=== PATIENT | male | born 1990 | race Two or more races ===

== ENCOUNTER 2016-05-22 17:08 | Emergency (ER) | payer MEDICAID, OTHER ==
[2016-05-22 17:20] VITALS: TEMP 98.2; O2SAT 96
--- NOTE | 2016-05-22 17:38 | EDPHY ---
General Narrative: CHIEF COMPLAINT: Left hand pain HISTORY OF PRESENT ILLNESS: Patient has had pain in the left hand for approximately a year he says. This started with a boxing injury. He was seen here with x-ray performed. He says he was diagnosed with a boxer's fracture at that time. He was referred to hand surgeon but did not ever go and he does not know why he did not go. Since then he has had pain intermittently. Sometimes goes away. Over the past week it has been worse. It is moderate to severe pain. The pain is located over the dorsum of the left hand and into the wrist. There is no snuffbox tenderness. There is no paresthesia or anesthesia. No weakness. No wrist drop. Worse with palpation and ambulation weight-bearing. Improved at rest. Radiates up into the forearm. No new injury since last year. No other associated complaints or modifying factors. PRIOR ORTHO INJURIES: Left hand injury ESTABLISHED ORTHOPEDIST: None REVIEW OF SYSTEMS: Ten systems reviewed and are negative unless otherwise noted in the HPI EXAMINATION General Appearance: Alert, no distress Cardiovascular: Pulses normal throughout. Symmetric radial pulses 2+. Brisk cap refill Neurological: A&O, sensory symmetric, strength symmetric. Interossei strength is 5/5 and symmetric. No wrist drop. Two-point sensation intact. Skin: Warm and dry, no rash. No lacerations abrasions or contusions. Extremities: Tenderness to palpation of the dorsal left hand over the metacarpals and into the wrist. There is no snuffbox tenderness. No tenderness at the base of the thumb. Range of motion is fully intact but painful. No wrist drop. No deformity. Psychiatric: Mood and affect normal DIFFERENTIAL DIAGNOSES: Including but not limited to chronic pain, strain, sprain, fracture, fracture dislocation MDM: 5:38 p.m. Left wrist and hand pain. The patient reports that was years ago, chart review reveals an injury in July 2015. X-ray was negative that was performed here. He did not here to our recommendations as he did not follow up with a hand surgeon. Neuro examination is normal. There is tenderness in the hand and wrist and I have ordered x-rays at this time. 6:15 p.m. X-rays are unremarkable for fracture. He remains neurovascular intact with no evidence of cellulitis, tenosynovitis, bite injury, laceration abrasion or contusions. Range of motion is painful but intact. I will discharge him home with a cock-up wrist splint and instructions to see Orthopedics for definitive care. He is comfortable with this plan and discharged home stable condition. ED Precautions: Worsening pain. Erythema, edema, cyanosis, pallor, paresthesia or anesthesia. SUPERVISION: This patient was independently evaluated without direct examination by the attending physician. Case was discussed with attending physician. - Diagnostics Imaging Results: Imaging Impressions Hand X-Ray 05/22/16 17:32 Impression: Left hand negative for fracture. Wrist X-Ray 05/22/16 17:34 Impression: Left wrist negative for fracture; the left hand is reported separately. - History Smoking Status: Former smoker - Objective Vital Signs: Initial Vital Signs Temperature (C) 98.2 F 05/22/16 17:17 Heart Rate 80 05/22/16 17:17 Respiratory Rate 18 05/22/16 17:17 Blood Pressure 139/97 H 05/22/16 17:17 O2 Sat (%) 96 05/22/16 17:17 O2 Delivery Mode Room Air Allergies/Adverse Reactions: Penicillins Allergy (Verified 05/22/16 17:16) Home Medications: Medication Instructions Recorded Acetaminophen/Codeine 300/30Mg 1 each PO Q6 PRN #10 tab 05/22/16 [Tylenol #3 (*)] Departure - Departure Disposition: Home, Routine, Self-Care Clinical Impression: Hand pain, left Condition: Good Instructions: Arthralgia (ED) Additional Instructions: Follow-up with hand surgeon for definitive care. Return to the ER for wrist drop, redness over the hand or wrist, sensory changes in the hand or wrist or worsening pain Referrals: NONE *PRIMARY CARE P,. [Primary Care Provider] - As per Instructions Juana Nash MD [Medical Doctor] - As per Instructions Prescriptions: Acetaminophen/Codeine 300/30Mg [Tylenol #3 (*)] 1 each PO Q6 PRN #10 tab PRN Reason: Pain, Mild
[2016-05-22 18:42] VITALS: BP 127/86; PULSE 78; RESP 14
== END 2016-05-22 18:42 | disposition home or self-care (01) ==
DX: M79.642 Pain in left hand (principal); Z87.891 Personal history of nicotine dependence
CPT/HCPCS: L3807

== ENCOUNTER → 2016-06-01 | Outpatient (CLI) | payer MEDICAID | LOC: FIMAGING 18:50 | PROVIDERS: ATTEND Physician Assistant | DX: S63.592A Other specified sprain of left wrist, initial encounter (principal); M65.842 Other synovitis and tenosynovitis, left hand ==

== ENCOUNTER 2017-02-20 21:58 | Emergency (ER) | payer SELFPAY ==
[2017-02-20] MEDS ORDERED: PANTOPRAZOLE SODIUM 40 MG VIAL IVP ONE (22:32)
[2017-02-20] MEDS ORDERED: ONDANSETRON 4 MG/2 ML VIAL IVP ONE (22:32)
[2017-02-20] MEDS ORDERED: NS 1,000 ML IV ONE (22:32)
--- NOTE | 2017-02-20 22:55 | EDPHY ---
H & P Smoking Status: Former smoker Time Seen by Provider: 02/20/17 22:31 HPI/ROS: CHIEF COMPLAINT: Abdominal pain, vomiting HISTORY OF PRESENT ILLNESS: 26-year-old male presents to the emergency department with multiple episodes of vomiting over the last hour and half. The patient states that he noted that he was vomiting "black stuff ". Patient has a history of alcoholism and has been sober for the last 10 days. He has been doing well until started feeling sick earlier this evening. He describes diffuse abdominal pain especially in the epigastric area. He has never had this in the past. He does note that he has had episodes of hematemesis however he has never seen a primer inserting machine adjuster or any doctor for this. No fevers or chills. No chest pain or difficulty breathing. No back pain. No urinary symptoms. No known ill contacts. No recent travel. No melena. REVIEW OF SYSTEMS: Constitutional: No fever, no chills. Eyes: No double or blurry vision. ENT: No sore throat. Respiratory: No cough, no shortness of breath. Cardiac: No chest pain. Gastrointestinal: Abdominal pain, vomiting as above. No diarrhea. Genitourinary: No dysuria. Musculoskeletal: No neck or back pain. Skin: No rashes. Neurological: No headache. (Maria GKarissa M) Past Medical/Surgical History: Alcoholism, sober for 10 days. Marijuana use (Maria G,Karissa M) Social History: Single (Maria G,Karissa M) Physical Exam: General Appearance: Alert, no distress. Vital signs are stable. Blood pressure 164/96 Eyes: Pupils equal and round. Extraocular motions are all intact. ENT: Mouth: Mucous membranes appears dry. Respiratory: No wheezing, rhonchi, or rales, lungs are clear to auscultation. Cardiovascular: Regular rate and rhythm. Gastrointestinal: Abdomen is soft. Diffuse tenderness with palpation especially in the epigastric area. There is no masses, rebound or guarding noted. No CVA tenderness bilaterally. Neurological: Alert and oriented x 3, cranial nerves II through XII grossly intact Skin: Warm and dry, no rashes. Musculoskeletal: Nontender to palpate along the cervical, thoracic or lumbar spine. Neck is supple. Extremities: Full range of motion and no peripheral edema. Psychiatric: Patient is oriented X 3, there is no agitation. (Karissa Cummins) Constitutional: Initial Vital Signs Temperature (C) 37.0 C 02/20/17 22:00 Heart Rate 81 02/20/17 22:00 Respiratory Rate 18 02/20/17 22:00 Blood Pressure 164/96 H 02/20/17 22:00 O2 Sat (%) 97 02/20/17 22:00 O2 Delivery Mode Room Air Allergies/Adverse Reactions: Penicillins Allergy (Verified 02/20/17 22:02) Home Medications: Medication Instructions Recorded NK [No Known Home Meds] 02/20/17 Medical Decision Making ED Course/Re-evaluation: 26-year-old male with multiple episodes of vomiting including "black stuff ". Gastric contents sent for occult testing. Laboratory studies are pending. Patient was given IV normal saline, IV Protonix, IV Zofran. 11:45 p.m.: The patient is feeling much better. He is tolerating p.o. fluids. He is comfortable being discharged home. Laboratory studies reveal normal hemoglobin and hematocrit. Platelets are normal. His chemistries are all unremarkable including LFTs and lipase. His gastric contents was positive for blood. I encouraged close follow-up with primer inserting machine adjuster. I also encouraged him to try [id number] Prilosec. He should return if he develops recurring vomiting, worsening abdominal pain, or if he feels worse in any way. Patient is comfortable with this plan. (Karissa Cummins) PHYSICIAN DOCUMENTATION: The patient was evaluated and managed by the Physician Blind Escort. My co- signature indicates that I have reviewed this chart and I agree with the findings and plan of care as documented. I am the secondary supervising physician. (Inocencia Horne) Differential Diagnosis: Including but not limited to GI bleed, gastritis, Connie-Becker tear, esophagitis, GERD, peptic ulcer disease (Karissa Cummins) - Data Points Laboratory Results: Laboratory Results 02/20/17 22:45 02/20/17 22:45 Medications Given: Discontinued Medications Sodium Chloride (Ns) 1,000 mls @ 0 mls/hr IV ONCE ONE PRN Reason: Wide Open Stop: 02/20/17 22:33 Last Admin: 02/20/17 22:44 Dose: 1,000 mls Ondansetron HCl (Zofran) 4 mg IVP EDNOW ONE Stop: 02/20/17 22:33 Last Admin: 02/20/17 22:42 Dose: 4 mg Pantoprazole Sodium (Protonix) 40 mg IVP EDNOW ONE Stop: 02/20/17 22:33 Last Admin: 02/20/17 22:43 Dose: 40 mg Departure - Departure Disposition: Home, Routine, Self-Care Clinical Impression: Abdominal pain, Vomiting Condition: Good Instructions: Acute Nausea and Vomiting (ED), Acute Abdominal Pain (ED) Additional Instructions: Abdominal Pain: Return to the Emergency Department immediately for increasing pain, fever, vomiting, or if not completely better in 8-12 hours. You may try [id number] Prilosec, omeprazole, for your upper abdominal pain. Clear liquids and slowly advance diet as tolerated. Follow up with primer inserting machine adjuster as discussed. Referrals: Everardo Cota MD [Medical Doctor] - 2-3 days, call for appt. ( Front Services Agent on-call)
[2017-02-20 23:00] LABS: PLATELET COUNT 213 10^3/uL (150-400)
[2017-02-21] VITALS: BP 143/85; PULSE 79; RESP 16; TEMP 98.6; O2SAT 96
== END 2017-02-20 23:59 | disposition home or self-care (01) ==
DX: R10.13 Epigastric pain (principal); R11.10 Vomiting, unspecified; Z87.891 Personal history of nicotine dependence
CPT/HCPCS: 96374; J2405

== ENCOUNTER 2017-02-27 13:20 | Emergency (ER) | payer MEDICAID ==
[2017-02-27 14:14] VITALS: RESP 22
[2017-02-27] MEDS ORDERED: ONDANSETRON 4 MG/2 ML VIAL ONE (14:26)
[2017-02-27] MEDS ORDERED: LORazepam 2 MG/ML INJ IVP ONE (14:52)
[2017-02-27] MEDS ORDERED: HALOPERIDOL LACT 5 MG/ML INJ IVP ONE (14:52)
[2017-02-27] MEDS ORDERED: NS 1,000 ML IV ONE (14:53)
[2017-02-27] MEDS ORDERED: FAMOTIDINE 20 MG TAB PO ONE (14:53)
--- NOTE | 2017-02-27 14:57 | EDPHY ---
General - History Smoking Status: Former smoker Narrative: CHIEF COMPLAINT: Abdominal pain, vomiting HISTORY OF PRESENT ILLNESS: Patient complains of 1 day history of epigastric abdominal pain with nausea vomiting. The vomiting has been voluminous and repetitive. He has moderate to severe epigastric tenderness. No lower quadrant tenderness. No fever. No bright red blood per emesis. No coffee-ground emesis. No blood in the stool described. Reports similar complaints several days ago. He was evaluated here and discharged home. He has been taking Pepto-Bismol without improvement. He was referred to a GI physician that he has not yet seen. He has continued heavy use of marijuana. No other associated complaints or modifying factors. REVIEW OF SYSTEMS: Ten systems reviewed and are negative unless otherwise noted in the HPI PCP: None SPECIALISTS: None. Awaiting referral to Dr. Cota PAST MEDICAL HISTORY: Orthopedic injuries only PAST SURGICAL HISTORY: Wrist surgery in September 2016 SOCIAL HISTORY: No tobacco use. Former alcohol user as of February 22. Heavy marijuana use FAMILY HISTORY: noncontributory EXAMINATION General Appearance: Alert, no distress Head: normocephalic, atraumatic Eyes: Pupils equal and round, no conjunctival pallor or injection ENT, Mouth: Mucous membranes moist. Uvula midline. Neck: Normal inspection, supple, non-tender Respiratory: Lungs are clear to auscultation Cardiovascular: Regular rate and rhythm. No murmur Gastrointestinal: Abdomen is soft and nondistended. Epigastric tenderness. No guarding. No tympany. No right lower quadrant tenderness. Negative Rovsing. No rigidity. Back: non-tender, no bony abnormalities Neurological: A&O, nonfocal, normal gait Skin: Warm and dry, no rash. No petechiae or purpura Extremities: Nontender, no pedal edema Psychiatric: Mood and affect normal DIFFERENTIAL DIAGNOSES: Including but not limited to gastritis, THC gastritis, GERD, reflux, pancreatitis, cholecystitis, cholelithiasis, MDM: 2:50 p.m. Epigastric abdominal pain with multiple bouts of vomiting today. No bright red blood. Abdominal exam reveals epigastric tenderness without acute abdomen. Vital signs are within normal limits. He does endorse heavy use of marijuana. Ordered laboratory studies and treatment for gastritis and nausea vomiting. At this point I would not order emergent imaging. I will see how he response to medications and re-evaluate. 3:45 p.m. Laboratory studies reveal leukocytosis that I suspect is demargination. Hemoglobin is stable. Chemistries unremarkable. Patient has received IV Haldol and IV Ativan in addition to Zofran and fluids. I have re-evaluated the patient at this time. He is feeling much better. He is sleeping but wakes easily. He is no longer feeling nauseated. Attempt a p.o. trial and re- evaluate 4:30 p.m. Patient re-evaluated. He is tolerating intake of water by mouth. He is feeling significantly better with the treatment here. Minimal pain. No nausea. I offered CT scan for further delineation but he has declined. I do not feel he requires CT scan at this time. He would like to go home. I do feel this is reasonable. I will discharge him home with treatment for gastritis. I would like him to return to the emergency department in 24 hr if no improvement of his symptoms. Like him to return sooner for symptoms worsen or he has vomited again. We discussed cessation of marijuana use as I suspect this is THC the related. He voices understanding of this. He will be provided the on-call primary care physician for outpatient follow-up and care. ED precautions discussed. He is discharged in stable condition SUPERVISION: Patient was independently examined, but I discussed the case with my secondary supervising physician Dr. Espinoza ([facility]) Discussion: The patient was evaluated and managed by the Physician Server Security Administrator. I discussed the patient's presentation and course with the midlevel provider with them and agree with the evaluation. My co-signature indicates that I have reviewed this chart and I agree with the findings and plan of care as documented. I am the secondary supervising physician. (Essie Espinoza) - Objective Vital Signs: Initial Vital Signs Temperature (C) 36.5 C 02/27/17 14:12 Heart Rate 64 02/27/17 14:12 Respiratory Rate 22 H 02/27/17 14:12 Blood Pressure 145/107 H 02/27/17 14:12 O2 Sat (%) 99 02/27/17 14:12 O2 Delivery Mode Room Air Allergies/Adverse Reactions: Penicillins Allergy (Verified 02/20/17 22:02) Home Medications: Medication Instructions Recorded Acetaminophen/Codeine 300/30Mg 1 each PO Q6 PRN #7 tab 02/27/17 [Tylenol #3 (*)] Famotidine [Pepcid 20 MG (*)] 20 mg PO BID #10 tab 02/27/17 Promethazine HCl [Phenergan 25mg 25 mg PO Q8 PRN #7 tab 02/27/17 (*)] Sucralfate [Carafate Oral Liquid 10 ml PO QID PRN #240 ml 02/27/17 100 mg/ml] Laboratory Results: Laboratory Results 02/27/17 14:22 02/27/17 14:22 02/27/17 02/27/17 14:22 14:22 WBC 15.06 10^3/uL H 10^3/uL (3.80-9.50) RBC 5.41 10^6/uL 10^6/uL (4.40-6.38) Hgb 16.4 g/dL g/dL (13.7-17.5) Hct 47.6 % % (40.0-51.0) MCV 88.0 fL fL (81.5-99.8) MCH 30.3 pg pg (27.9-34.1) MCHC 34.5 g/dL g/dL (32.4-36.7) RDW 12.4 % % (11.5-15.2) Plt Count 279 10^3/uL 10^3/uL (150-400) MPV 10.6 fL fL (8.7-11.7) Neut % (Auto) 91.8 % H % (39.3-74.2) Lymph % (Auto) 4.9 % L % (15.0-45.0) Bullock % (Auto) 2.3 % L % (4.5-13.0) Eos % (Auto) 0.0 % L % (0.6-7.6) Baso % (Auto) 0.3 % % (0.3-1.7) Nucleat RBC Rel Count 0.0 % % (0.0-0.2) Absolute Neuts (auto) 13.84 10^3/uL H 10^3/uL (1.70-6.50) Absolute Lymphs (auto) 0.74 10^3/uL L 10^3/uL (1.00-3.00) Absolute Monos (auto) 0.34 10^3/uL 10^3/uL (0.30-0.80) Absolute Eos (auto) 0.00 10^3/uL L 10^3/uL (0.03-0.40) Absolute Basos (auto) 0.04 10^3/uL 10^3/uL (0.02-0.10) Absolute Nucleated RBC 0.00 10^3/uL 10^3/uL (0-0.01) Immature Gran % 0.7 % % (0.0-1.1) Immature Gran # 0.10 10^3/uL 10^3/uL (0.00-0.10) Sodium 146 mEq/L H mEq/L (135-145) Potassium 4.1 mEq/L mEq/L (3.5-5.2) Chloride 102 mEq/L mEq/L (97-110) Carbon Dioxide 24 mEq/l mEq/l (22-31) Anion Gap 20 mEq/L H mEq/L (8-16) BUN 10 mg/dL mg/dL (7-23) Creatinine 0.9 mg/dL mg/dL (0.7-1.3) Estimated GFR > 60 Glucose 133 mg/dL H mg/dL (70-100) Calcium 10.5 mg/dL H mg/dL (8.5-10.4) Total Bilirubin 0.5 mg/dL mg/dL (0.1-1.4) Conjugated Bilirubin 0.3 mg/dL mg/dL (0.0-0.5) Unconjugated Bilirubin 0.2 mg/dL mg/dL (0.0-1.1) AST 24 IU/L IU/L (17-59) ALT 41 IU/L IU/L (21-72) Alkaline Phosphatase 107 IU/L IU/L (38-126) Total Protein 8.3 g/dL H g/dL (6.3-8.2) Albumin 5.0 g/dL g/dL (3.5-5.0) Lipase 80 IU/L IU/L (23-300) Medications Given: Discontinued Medications Famotidine (Pepcid) 20 mg PO EDNOW ONE Stop: 02/27/17 14:54 Last Admin: 02/27/17 15:20 Dose: 20 mg Haloperidol Lactate (Haldol Injection) 2.5 mg IVP EDNOW ONE Stop: 02/27/17 14:53 Last Admin: 02/27/17 15:20 Dose: 2.5 mg Sodium Chloride (Ns) 1,000 mls @ 0 mls/hr IV EDNOW ONE; Wide Open PRN Reason: Protocol Stop: 02/27/17 14:54 Last Admin: 02/27/17 14:45 Dose: 1,000 mls Lorazepam (Ativan Injection) 1 mg IVP EDNOW ONE Stop: 02/27/17 14:53 Last Admin: 02/27/17 15:20 Dose: 1 mg Departure - Departure Disposition: Home, Routine, Self-Care Clinical Impression: Epigastric pain Gastritis Qualifiers: Gastritis type: other gastritis Chronicity: acute Gastritis bleeding: without bleeding Qualified Code(s): K29.00 - Acute gastritis without bleeding Nausea & vomiting Qualifiers: Vomiting type: unspecified Vomiting Intractability: non-intractable Qualified Code(s): R11.2 - Nausea with vomiting, unspecified Condition: Good Instructions: Gastritis (ED), Acute Nausea and Vomiting (ED), Medicinal Use of Cannabis (ED) Additional Instructions: 1. Recommend cessation of marijuana use 2. Medications as prescribed as needed 3. Contact the on-call primary care physician as provided and discussed Referrals: Shantanu Smith MD [Medical Doctor] - As per Instructions Stand Alone Forms: Work Excuse Prescriptions: Acetaminophen/Codeine 300/30Mg [Tylenol #3 (*)] 1 each PO Q6 PRN #7 tab PRN Reason: Pain, Mild Famotidine [Pepcid 20 MG (*)] 20 mg PO BID #10 tab Promethazine HCl [Phenergan 25mg (*)] 25 mg PO Q8 PRN #7 tab PRN Reason: Nausea/Vomiting, Use 1st Sucralfate [Carafate Oral Liquid 100 mg/ml] 10 ml PO QID PRN #240 ml PRN Reason: abdominal pain
[2017-02-27 15:00] LABS: PLATELET COUNT 279 10^3/uL (150-400)
[2017-02-27 17:01] VITALS: BP 132/82; PULSE 67; TEMP 98.6; O2SAT 98
== END 2017-02-27 17:01 | disposition home or self-care (01) ==
DX: K29.00 Acute gastritis without bleeding (principal); E86.9 Volume depletion, unspecified; Z87.891 Personal history of nicotine dependence
CPT/HCPCS: 96374; J1630; J2060; J2405

== ENCOUNTER 2017-06-19 15:15 | Emergency (ER) | payer SELFPAY ==
[2017-06-19 15:21] VITALS: BP 136/84
[2017-06-19] MEDS ORDERED: ONDANSETRON 4 MG/2 ML VIAL IVP ONE (16:03)
[2017-06-19] MEDS ORDERED: NS 1,000 ML IV ONE (16:03)
--- NOTE | 2017-06-19 16:06 | EDPHY ---
H & P Stated Complaint: abdominal pain x 1 week, nausea after eating. Time Seen by Provider: 06/19/17 15:54 HPI/ROS: CHIEF COMPLAINT: Intractable nausea vomiting HISTORY OF PRESENT ILLNESS: 26-year-old male arrives via private vehicle complaining of intractable nausea and vomiting for the past 7 days. States that soon as he eats small amount of food he will shortly thereafter vomit. No specific abdominal pain. He does describe intermittent nonspecific abdominal cramping. Remote history of appendicitis. Bowel movements have been normal. History of continued daily marijuana use. No trauma history. No urinary abnormality. No melena or hematochezia. He was seen emergency department in February 2017 for similar complaints, given gastroenterology follow-up at that time however as he remained asymptomatic he did not seek follow-up. REVIEW OF SYSTEMS: A ten point review of systems was performed and is negative with the exception of the items mentioned in the HPI PAST MEDICAL & SURGICAL HISTORY: Appendectomy SOCIAL HISTORY:Positive for daily marijuana use of smoked and edible PHYSICAL EXAM (Prior to examination, patient consented to physical exam, hands were washed and my usual and customary physical exam procedures followed) 1) GENERAL: Well-developed, well-nourished, alert and oriented. Appears to be in no acute distress. 2) HEAD: Normocephalic, atraumatic 3) HEENT: Pupils equal, round, reactive to light bilaterally. Sclera anicteric. Nasopharynx, oropharynx, clear, no lesions. Dry mucous membranes 4) NECK: Full range of motion, no meningeal signs. 5) LUNGS: Clear auscultation bilaterally, no wheezes, no rhonchi, no retractions. 6) HEART: Regular rate and rhythm, no murmur, no heave, no gallop. 7) ABDOMEN: No guarding, mild tenderness to palpation left upper quadrant left lower quadrant,, negative McBurney's, negative Adan's, negative Rovsing's, negative peritoneal sign, 8) MUSCULOSKELETAL: Moving all extremities, no focal areas of tenderness, no obvious trauma. No peripheral edema or discoloration. 9) BACK: No CVA tenderness, no midline vertebral tenderness, no fluctuance, no step-off, no obvious trauma, no visual or palpable abnormality. 10) SKIN: No rash, no petechiae. 11) : Uncircumcised, bilateral testicles nontender , no high-riding testicle , no signs of trauma, bilateral cremasteric reflex present and brisk,. DIFFERENTIAL DIAGNOSIS: My differential diagnosis includes, but is not limited to, cyclic vomiting syndrome, cannabis hyperemesis, acute cholecystitis, bowel obstruction, acute pancreatitis, testicular torsion, gastritis. The patient understands that this diagnosis is provisional and can never be 100% accurate. This is a partial list of diagnoses considered. These considerations are based on history, physical exam, past history and reassessment. - Medical/Surgical History Hx Asthma: No Hx Chronic Respiratory Disease: No Hx Diabetes: No Hx Cardiac Disease: No Hx Renal Disease: No Hx Cirrhosis: No Hx Alcoholism: No Hx HIV/AIDS: No Hx Splenectomy or Spleen Trauma: No Other PMH: left wrist surgery - Social History Smoking Status: Former smoker Constitutional: Initial Vital Signs Temperature (C) 36.7 C 06/19/17 15:17 Heart Rate 85 06/19/17 15:17 Respiratory Rate 18 06/19/17 15:17 Blood Pressure 136/84 H 06/19/17 15:17 O2 Sat (%) 97 06/19/17 15:17 O2 Delivery Mode Room Air Allergies/Adverse Reactions: Penicillins Allergy (Verified 06/19/17 15:17) Home Medications: Medication Instructions Recorded Ondansetron Odt [Zofran Odt] 4 mg PO Q4PRN PRN #10 tab 06/19/17 Pantoprazole Sodium [Protonix 40mg 40 mg PO DAILY #30 tab 06/19/17 (RX)] Medical Decision Making ED Course/Re-evaluation: 4:03 p.m.: I reviewed the patient's old medical records. History of appendicitis. He has never followed up with Gastroenterology. Will obtain laboratory studies, administer IV hydration antiemetic. Care of patient under supervision of secondary supervising physician Dr Mandel. . 4:51 p.m. I have reviewed this patient's diagnostic results. He declined Zofran in the ER. He has been re-examined with serial examinations. I re- examined his abdomen. No guarding or rebound. No focal tenderness. He is able tolerate oral intake. At this time I think that acute surgical abdominal pathology is less than likely in this patient. He was initially noted to have mild discomfort palpation left upper and left lower quadrant. No splenomegaly noted. Think that diverticulitis, diverticular abscess, less than likely in this otherwise generally healthy 26-year-old male. I do not think that the benefits of CT imaging outweigh the risks. I have strongly encouraged him to follow up with Gastroenterology. Also strongly encouraged him to discontinue his chronic marijuana use. Recommended initiation of PPI therapy and given prescription for PPI and anti emetic as well as usual and customary abdominal precautions and instructions. He feels comfortable being discharged. All questions and concerns addressed by myself. - Data Points Laboratory Results: Laboratory Results 06/19/17 16:05 06/19/17 16:05 06/19/17 06/19/17 16:05 16:05 WBC 8.06 10^3/uL 10^3/uL (3.80-9.50) RBC 5.20 10^6/uL 10^6/uL (4.40-6.38) Hgb 15.7 g/dL g/dL (13.7-17.5) Hct 46.5 % % (40.0-51.0) MCV 89.4 fL fL (81.5-99.8) MCH 30.2 pg pg (27.9-34.1) MCHC 33.8 g/dL g/dL (32.4-36.7) RDW 13.3 % % (11.5-15.2) Plt Count 223 10^3/uL 10^3/uL (150-400) MPV 10.4 fL fL (8.7-11.7) Neut % (Auto) 67.6 % % (39.3-74.2) Lymph % (Auto) 23.4 % % (15.0-45.0) [place] % (Auto) 7.7 % % (4.5-13.0) Eos % (Auto) 0.6 % % (0.6-7.6) Baso % (Auto) 0.5 % % (0.3-1.7) Nucleat RBC Rel Count 0.0 % % (0.0-0.2) Absolute Neuts (auto) 5.44 10^3/uL 10^3/uL (1.70-6.50) Absolute Lymphs (auto) 1.89 10^3/uL 10^3/uL (1.00-3.00) Absolute Monos (auto) 0.62 10^3/uL 10^3/uL (0.30-0.80) Absolute Eos (auto) 0.05 10^3/uL 10^3/uL (0.03-0.40) Absolute Basos (auto) 0.04 10^3/uL 10^3/uL (0.02-0.10) Absolute Nucleated RBC 0.00 10^3/uL 10^3/uL (0-0.01) Immature Gran % 0.2 % % (0.0-1.1) Immature Gran # 0.02 10^3/uL 10^3/uL (0.00-0.10) Sodium 141 mEq/L mEq/L (135-145) Potassium 3.9 mEq/L mEq/L (3.5-5.2) Chloride 100 mEq/L mEq/L (97-110) Carbon Dioxide 27 mEq/l mEq/l (22-31) Anion Gap 14 mEq/L mEq/L (8-16) BUN 12 mg/dL mg/dL (7-23) Creatinine 0.9 mg/dL mg/dL (0.7-1.3) Estimated GFR > 60 Glucose 88 mg/dL mg/dL (70-100) Calcium 9.4 mg/dL mg/dL (8.5-10.4) Total Bilirubin 0.8 mg/dL mg/dL (0.1-1.4) Conjugated Bilirubin 0.5 mg/dL mg/dL (0.0-0.5) Unconjugated Bilirubin 0.3 mg/dL mg/dL (0.0-1.1) AST 20 IU/L IU/L (17-59) ALT 32 IU/L IU/L (21-72) Alkaline Phosphatase 83 IU/L IU/L (38-126) Total Protein 7.8 g/dL g/dL (6.3-8.2) Albumin 4.6 g/dL g/dL (3.5-5.0) Lipase 41 IU/L IU/L (23-300) Medications Given: Discontinued Medications Sodium Chloride (Ns) 1,000 mls @ 0 mls/hr IV ONCE ONE PRN Reason: Wide Open Stop: 06/19/17 16:04 Last Admin: 06/19/17 16:13 Dose: 1,000 mls Ondansetron HCl (Zofran) 4 mg IVP EDNOW ONE Stop: 06/19/17 16:04 Last Admin: 06/19/17 16:33 Dose: Not Given Departure - Departure Disposition: Home, Routine, Self-Care Clinical Impression: Volume depletion Vomiting Qualifiers: Vomiting type: unspecified Vomiting Intractability: non-intractable Nausea presence: with nausea Qualified Code(s): R11.2 - Nausea with vomiting, unspecified Condition: Good Instructions: Acute Nausea and Vomiting (ED) Additional Instructions: Seek immediate medical attention if you develop new or worsening symptoms, if you develop fevers, chills, inability to tolerate oral intake or any other symptoms that concerns you. Please consider discontinuation of marijuana products Referrals: Herrera Adams MD [Medical Doctor] - As per Instructions Prescriptions: Ondansetron Odt [Zofran Odt] 4 mg PO Q4PRN PRN #10 tab PRN Reason: Nausea Pantoprazole Sodium [Protonix 40mg (RX)] 40 mg PO DAILY #30 tab
[2017-06-19 16:15] LABS: PLATELET COUNT 223 10^3/uL (150-400)
== END 2017-06-19 17:20 | disposition home or self-care (01) ==
DX: R11.2 Nausea with vomiting, unspecified (principal); E86.9 Volume depletion, unspecified; Z87.891 Personal history of nicotine dependence
CPT/HCPCS: J2405

== ENCOUNTER 2017-08-23 19:10 | Emergency (ER) | payer OTHER ==
[2017-08-23 19:15] VITALS: BP 156/115
[2017-08-23] MEDS ORDERED: IBUPROFEN 600 MG TAB PO ONE (19:21)
--- NOTE | 2017-08-23 19:36 | EDPHY ---
H & P Stated Complaint: R knuckle pain, "heard a crunching sound", pain in arm Source: Patient Exam Limitations: No limitations - Personal History Current Tetanus Diphtheria and Acellular Pertussis (TDAP): Yes - Medical/Surgical History Hx Asthma: No Hx Chronic Respiratory Disease: No Hx Diabetes: No Hx Cardiac Disease: No Hx Renal Disease: No Hx Cirrhosis: No Hx Alcoholism: No Hx HIV/AIDS: No Hx Splenectomy or Spleen Trauma: No Other PMH: left wrist surgery - Social History Smoking Status: Former smoker Time Seen by Provider: 08/23/17 19:34 HPI/ROS: HPI: This is a 26-year-old male who presents with Chief Complaint: R knuckle pain, "heard a crunching sound", pain in arm Location: right 4h and 5th knuckle Quality: injury Duration:1 hour prior to arrival Signs and Symptoms: No bleeding, no radiation, no numbness, no weakness, no tingling, no incontinence, + decreased range of motion, + swelling, + pain, no fever Timing:acute Severity: moderate Context: Patient is a student at [employer], left hand dominant, presents with complaints of right hand injury primarily at the 4th and 5th knuckle. Patient was at baseball practice today and they were tossing football round. He reports that he accidentally hit top of 4th and 5th fingers on the tip of the football. He felt immediate pain and felt like his fingers jammed back into his hand. He reports that the pain was moderate, constant, nonradiating in nature. He reports that he has decreased range of motion secondary to pain and swelling. He denies any paresthesias, weakness, numbness. Denies LOC/head injury/neck pain/dizziness/nausea/vomiting/amnesia. Modifying Factors: He is not taking any [id number] pain medications or ice. Comment: ROS: see HPI Constitutional: No fever, no chills, no weight loss Eyes: No blurred vision Respiratory: No shortness of breath, no cough Cardiovascular: No chest pain Gastrointestinal: No nausea, no vomiting no diarrhea Genitourinary: No dysuria Extremities: No myalgias Neurologic: No weakness, no numbness Skin: No rashes Hematologic: No bruising, no bleeding MEDICAL/SURGICAL/SOCIAL HISTORY: Medical history: Generally healthy. Does not take any regular medications. Surgical history: Left wrist surgery Social history: Student at [employer] CONSTITUTIONAL: Extremely polite and cooperative young adult male, awake and alert, no obvious distress HEENT: Atraumatic and normocephalic. EXTREMITIES: 2/2 pulses, strength 5/5, right WRIST: Extension to 70, flexion to 80, radial deviation to 20 degree, ulnar deviation to 30, no scaphoid tenderness, no tenderness over ulnar styloid, no tenderness over radial styloid. KNEE: no effusion, medial and lateral joint line tenderness, full extension to 180, flexion to 120. No pain with varus and valgus exam. No pain with anterior drawer or posterior drawer test. Right 4th and 5th metacarpals are swollen and tender to palpation no obvious deformity noted. DIP /PIP/MCP flexion/extension intact with good light touch sensation. no deformities, no clubbing, no cyanosis or edema. NEUROLOGICAL: no focal neuro deficits. GCS 15. Light touch sensation intact. SKIN: Warm and dry, no erythema. no rash. Good capillary refill. (Mary Sprague ) Constitutional: Initial Vital Signs Temperature (C) 36.6 C 08/23/17 19:14 Heart Rate 105 H 08/23/17 19:14 Respiratory Rate 19 08/23/17 19:14 Blood Pressure 156/115 H 08/23/17 19:14 O2 Sat (%) 98 08/23/17 19:14 O2 Delivery Mode Room Air Allergies/Adverse Reactions: Penicillins Allergy (Verified 08/23/17 19:17) Home Medications: Medication Instructions Recorded Ondansetron Odt [Zofran Odt] 4 mg PO Q4PRN PRN #10 tab 06/19/17 Pantoprazole Sodium [Protonix 40mg 40 mg PO DAILY #30 tab 06/19/17 (RX)] oxyCODONE/APAP 5/325 [Percocet 1 - 2 tab PO Q4H PRN #10 tab 08/23/17 5/325 (*)] Medical Decision Making - Diagnostics Imaging Results: Imaging Impressions Hand X-Ray 08/23/17 19:21 Impression: 1. Nondisplaced oblique fracture proximal to mid shaft right fourth metacarpal. Wrist X-Ray 08/23/17 19:21 Impression: 1. Nondisplaced oblique fracture proximal to mid shaft right fourth metacarpal. Procedures: Procedure: Splint placement. A right ulnar gutter splint and sling were applied by the Emergency Room vein access technician. After application of the splint I returned and re-examined the patient. The splint was adequately immobilizing the joint and distal to the splint the patient's circulation and sensation was intact. (Mary Sprague) ED Course/Re-evaluation: Right hand x-ray, right wrist x-ray ordered Patient politely declined ice pack. Hand x-ray my read shows 4th metacarpal fracture minimally displaced. Placed in ulnar gutter splint, sling with orthopedic follow-up. No signs of neurovascular compromise/tenting of skin/compartment syndrome/ extremities and joints examined above and below area of concern and are neurovascularly intact. This patient was seen under the supervision of my secondary supervising physician. I evaluated care for this patient independently. Discussed this patient with Dr. Oviedo. (Mary Sprague) I did not see this patient while he was in the emergency department. However his care was discussed with the PA while the patient was in the department. I agree with treatment plan and management (José Manuel Oviedo) Differential Diagnosis: Differential diagnosis includes but is not limited to finger dislocation, phalanx fracture, nail injury, tendon injury, nerve injury. (Mary Sprague) - Data Points Medications Given: Discontinued Medications Ibuprofen (Motrin) 600 mg PO EDNOW ONE Stop: 08/23/17 19:22 Last Admin: 08/23/17 19:25 Dose: 600 mg Departure - Departure Disposition: Home, Routine, Self-Care Clinical Impression: Fracture of fourth metacarpal bone of right hand Qualifiers: Encounter type: initial encounter Fracture type: closed Metacarpal location: shaft Fracture alignment: displaced Qualified Code(s): S62.324A - Displaced fracture of shaft of fourth metacarpal bone, right hand, initial encounter for closed fracture Condition: Good Instructions: Hand Fracture (ED), Splint Care (ED) Additional Instructions: Keep the splint dry and in place until seen by Orthopedics. After 48 hours, you may remove the dressing; wash the site daily with mild soap and water; then pat dry. Take Tylenol 650 mg every 4 hours and/or Ibuprofen 600 mg every 8 hours with food as needed for pain. Use Percocet every 6 hours as needed for severe/break through pain. Do not use Tylenol and Percocet concomitantly. Apply ice for 30 minutes at a time; 2-3 times per day for the next 1-2 days. Follow up with Orthopedics in 5-7 days at which time they will evaluate and recommend with you if conservative management versus surgery is indicated. Follow-Up: Please follow-up as noted above. Follow up sooner if your condition worsens or if you develop any new problems Call as soon as possible for an appointment. Be clear when you call for an appointment that this is an Emergency Department follow-up. Contact the Emergency Department if you are having trouble arranging follow up care. Our referrals are not based on your insurance network. When time allows, contact your insurance carrier to verify the referral physician is in your plan. If not, get a referral for an in-linux network administrator. Please ask us if you have any questions. Referrals: Alexis Copeland MD [Medical Doctor] - As per Instructions Prescriptions: oxyCODONE/APAP 5/325 [Percocet 5/325 (*)] 1 - 2 tab PO Q4H PRN #10 tab PRN Reason: Pain, Severe
== END 2017-08-23 20:10 | disposition home or self-care (01) ==
DX: S62.324A Displaced fracture of shaft of fourth metacarpal bone, right hand, initial encounter for closed fracture (principal); Z87.891 Personal history of nicotine dependence; W21.01XA Struck by football, initial encounter; Y99.8 Other external cause status; Y93.61 Activity, american tackle football

== ENCOUNTER 2018-05-28 18:28 | Emergency (ER) | payer OTHER ==
[2018-05-28] MEDS ORDERED: ONDANSETRON DISINTEGRATING 4 MG TAB PO ONE (18:49)
[2018-05-28] MEDS ORDERED: fentaNYL 100 MCG/2 ML INJ IVP ONE ×2 (19:26→20:16)
[2018-05-28] MEDS ORDERED: ONDANSETRON 4 MG/2 ML VIAL IVP ONE (19:26)
[2018-05-28] MEDS ORDERED: NS 1,000 ML IV ONE ×2 (19:26→19:59)
--- NOTE | 2018-05-28 19:27 | EDPHY ---
General - History Smoking Status: Former smoker Time Seen by Provider: 05/28/18 19:06 Narrative: CLINICAL IMPRESSION: Alcoholic gastritis ASSESSMENT/PLAN: 27-year-old male presents to the emergency department with abdominal pain that began today associated with nausea and nonbloody nonbilious vomiting. Patient is tender to the epigastrium and right upper quadrant. EKG shows normal sinus rhythm, no acute ST or T-wave change, reviewed with Dr. Oviedo. Troponin negative. Initial lab suggestive of acidosis likely secondary to dehydration although lactate, beta hydroxybutyrate and blood gas do not suggest alcoholic ketoacidosis. Patient's labs improved significantly after 2 L IV fluid. He continued to complain of abdominal pain that seemed out of proportion to exam findings and was sleeping comfortably on all reassessments. CT scan performed and read by Radiology with no acute abnormality identified. He does have a leukocytosis of 15, normal lipase, mild transaminitis likely secondary to his chronic alcohol abuse. He was able to tolerate water and pain improved with GI cocktail, famotidine and IV fentanyl. I encouraged him to continue abstaining from alcohol, consider a PPI treatment for the next several weeks, modify diet, PCP follow-up encouraged. Case discussed with Dr. Oviedo. Warning signs return to ED sooner outlined and discharge. DIFFERENTIAL DX: Abdominal pain includes but not limited to acute appendicitis, alcoholic gastritis, gastroesophageal varices, portal hypertension, ACS diverticulitis, cholecystitis, pancreatitis, SBO, gastroenteritis, constipation ED PROCEDURES: See lab and/or imaging results below ED COURSE: Patient seen and assessed by myself at 7:15 p.m.. Appears uncomfortable, nauseous and vomiting. Abdomen diffusely tender, more so to the right upper quadrant and epigastric area. Plan for IV, labs, fluid bolus, antiemetics and analgesics and EKG. 8:20 p.m.: Patient reassessed, nausea improved, continuing to have abdominal pain, repeat fentanyl and famotidine ordered. 2 L of IV fluid completed. Will repeat basic metabolic panel. EKG shows normal sinus rhythm, no acute ST or T- wave changes, reviewed with Dr. Oviedo. 8:30 p.m.: EKG and case reviewed with Dr. Oviedo. Concern about acidosis and possible for alcoholic ketoacidosis. Will check troponin, lactic acid, venous blood gas, beta hydroxybutyrate, and urine. Repeat basic metabolic panel after 2nd L. 10:00 p.m.: CT scan results discussed with Radiology. No acute findings identified. CHIEF COMPLAINT: Abdominal pain, nausea, vomiting HPI: 27-year-old male presents to the emergency department with 2 days of abdominal pain nausea and vomiting. Patient reports a history of heavy alcohol abuse, upwards of 7 Margaritas a day, his last drink being 3 days ago. He reports he is trying to stop drinking "cold turkey". He reports no history of problems with alcohol withdrawal, DTs, alcohol withdrawal seizures, GI bleeding, or pancreatitis. He has been unable to keep anything down due to persistent nausea and vomiting. He does report some blood in his vomit at home. No reports of bloody stool. Pain is primarily to the upper abdomen but generally uncomfortable throughout. He states pain does radiate into the back and into the chest. No associated shortness of breath. No reported cardiopulmonary history or first-degree family relative with cardiac disease. He has also been using some cocaine but no other drugs including marijuana. He has been trying hot showers and rest. He has had a prior appendectomy. No reported fever or chills. He has not take anything prior to arrival. PAST MEDICAL HISTORY: Alcohol abuse See nurse/triage notes for additional history if applicable Pertinent Past Surgical History: Appendectomy Family History: No first-degree relative with cardiac history Social History: Abuses cocaine, abuses alcohol REVIEW OF SYSTEMS: All other systems negative Constitutional: No fever, no chills, positive for appetite change. Cardiovascular: Positive for chest pain, no palpitations. Respiratory: No cough, no shortness of breath. Gastrointestinal: Positive for abdominal pain, vomiting, denies diarrhea. Genitourinary: No hematuria, dysuria, flank pain, pelvic pain Musculoskeletal: Positive for radiating pain in to the back, joint swelling, joint pain, myalgias.] Skin: No rashes, color change. Neurological: No headache, dizziness, positive for weakness. PHYSICAL EXAM: General Appearance: Alert, oriented, appropriate, cooperative, laying on the bed, does not appear acutely distressed, non-toxic appearing, tachycardic, hypertensive no hypoxia. HEENT: Mildly dry mucous membranes Oropharynx clear is no erythema or exudates , no tonsillar hypertrophy or asymmetry. Dentition without abnormality.] Eyes: [PERRLA, no acute vision change, nystagmus, swelling, discharge, pain or photosensitivity. Respiratory: There are no retractions, lungs are clear to auscultation. Cardiac: Tachycardic, regular rhythm, no murmurs or gallops. Gastrointestinal: Abdomen is soft, generally tender throughout, guarding to epigastrium and right upper quadrant, no distension bowel sounds hypoactive no masses/hernia, no focal peritoneal findings Neurological: [ Alert and oriented x 3, no tremors, no tongue fasciculations Skin: Warm, dry, no rashes, no nodules on palpation. MEDICAL DECISION MAKING: Patient was seen independently. Secondary supervising physician at time of evaluation was Dr. Oviedo . Diagnosis: Alcohol-induced gastritis, epigastric abdominal pain, nausea vomiting . New, requires workup Summary: See Assessment and Plan for summary of ED visit Clinical lab tests: ordered / reviewed. Independent visualization of images, tracing, or specimens: Yes. Decision to obtain medical records or history from someone other than the patient: No Review / Summarize previous medical records: Yes Discussed patient with another provider: Dr. Oviedo Patient Progress: Stable for discharge. (Grover Steel) Medical Decision Making: I did not see this patient while he was in the emergency department. However his care was discussed with the PA while the patient was in the department. Agree with treatment plan (José Manuel Oviedo) - Diagnostics Imaging Results: Imaging Impressions Abdomen CT 05/28/18 21:27 Impression: No acute abdominopelvic process. Findings and recommendations discussed with Grover Steel at 2201 hour, . - Objective Vital Signs: Initial Vital Signs Temperature (C) 36.5 C 05/28/18 18:34 Heart Rate 104 H 05/28/18 18:34 Respiratory Rate 16 05/28/18 18:34 Blood Pressure 158/90 H 05/28/18 18:34 O2 Sat (%) 99 05/28/18 18:34 O2 Delivery Mode Room Air Allergies/Adverse Reactions: Penicillins Allergy (Verified 08/23/17 19:17) Home Medications: Medication Instructions Recorded Ondansetron Odt [Zofran Odt] 4 mg PO Q4PRN PRN #7 tab 05/28/18 Laboratory Results: Laboratory Results 05/28/18 19:02 05/28/18 20:40 05/28/18 05/28/18 05/28/18 20:46 20:40 20:40 WBC RBC Hgb Hct MCV MCH MCHC RDW Plt Count MPV Neut % (Auto) Lymph % (Auto) [place] % (Auto) Eos % (Auto) Baso % (Auto) Nucleat RBC Rel Count Absolute Neuts (auto) Absolute Lymphs (auto) Absolute Monos (auto) Absolute Eos (auto) Absolute Basos (auto) Absolute Nucleated RBC Immature Gran % Immature Gran # Puncture Site Not Reported Patient Temperature 37.0 DEGREES DEGREES VBG pH 7.33 (7.31-7.42) VBG HCO3 18 mEQ/L L mEQ/L (22-26) VBG Total CO2 19 mEq/L L mEq/L (21-27) VBG O2 Saturation 98 % H % (65-75) VBG Base Excess -6.6 mEq/L L mEq/L (-2.5-2.5) VBG Lactic Acid 1.5 mmol/L mmol/L (0.7-2.1) Mixed VBG pCO2 36 mmHg L mmHg (40-44) Mixed VBG pO2 117 mmHG H mmHG (35-40) Sodium Potassium Chloride Carbon Dioxide Anion Gap BUN Creatinine Estimated GFR Glucose Calcium Phosphorus Total Bilirubin Conjugated Bilirubin Unconjugated Bilirubin AST ALT Alkaline Phosphatase POC Troponin I 0.00 ng/mL ng/mL (0.00-0.08) Total Protein Albumin Lipase Beta-Hydroxybutyrate 05/28/18 05/28/18 05/28/18 20:40 19:02 19:02 WBC 15.83 10^3/uL H 10^3/uL (3.80-9.50) RBC 5.82 10^6/uL 10^6/uL (4.40-6.38) Hgb 17.6 g/dL H g/dL (13.7-17.5) Hct 52.1 % H % (40.0-51.0) MCV 89.5 fL fL (81.5-99.8) MCH 30.2 pg pg (27.9-34.1) MCHC 33.8 g/dL g/dL (32.4-36.7) RDW 12.9 % % (11.5-15.2) Plt Count 335 10^3/uL 10^3/uL (150-400) MPV 10.8 fL fL (8.7-11.7) Neut % (Auto) 87.1 % H % (39.3-74.2) Lymph % (Auto) 7.8 % L % (15.0-45.0) [place] % (Auto) 4.2 % L % (4.5-13.0) Eos % (Auto) 0.0 % L % (0.6-7.6) Baso % (Auto) 0.3 % % (0.3-1.7) Nucleat RBC Rel Count 0.0 % % (0.0-0.2) Absolute Neuts (auto) 13.80 10^3/uL H 10^3/uL (1.70-6.50) Absolute Lymphs (auto) 1.24 10^3/uL 10^3/uL (1.00-3.00) Absolute Monos (auto) 0.66 10^3/uL 10^3/uL (0.30-0.80) Absolute Eos (auto) 0.00 10^3/uL L 10^3/uL (0.03-0.40) Absolute Basos (auto) 0.04 10^3/uL 10^3/uL (0.02-0.10) Absolute Nucleated RBC 0.00 10^3/uL 10^3/uL (0-0.01) Immature Gran % 0.6 % % (0.0-1.1) Immature Gran # 0.09 10^3/uL 10^3/uL (0.00-0.10) Puncture Site Patient Temperature VBG pH VBG HCO3 VBG Total CO2 VBG O2 Saturation VBG Base Excess VBG Lactic Acid Mixed VBG pCO2 Mixed VBG pO2 Sodium 138 mEq/L mEq/L 138 mEq/L mEq/L (135-145) (135-145) Potassium 4.3 mEq/L mEq/L 4.5 mEq/L mEq/L (3.5-5.2) (3.5-5.2) Chloride 109 mEq/L mEq/L 102 mEq/L mEq/L (97-110) (97-110) Carbon Dioxide 19 mEq/l L mEq/l 14 mEq/l L mEq/l (22-31) (22-31) Anion Gap 10 mEq/L mEq/L 22 mEq/L H mEq/L (6-14) (6-14) BUN 16 mg/dL mg/dL 17 mg/dL mg/dL (7-23) (7-23) Creatinine 1.1 mg/dL mg/dL 1.7 mg/dL H mg/dL (0.7-1.3) (0.7-1.3) Estimated GFR > 60 49 Glucose 150 mg/dL H mg/dL 207 mg/dL H mg/dL (70-100) (70-100) Calcium 8.9 mg/dL mg/dL 12.1 mg/dL H mg/dL (8.5-10.4) (8.5-10.4) Phosphorus 2.0 mg/dL L mg/dL (2.5-4.5) Total Bilirubin 1.2 mg/dL mg/dL (0.1-1.4) Conjugated Bilirubin 0.3 mg/dL mg/dL (0.0-0.5) Unconjugated Bilirubin 0.9 mg/dL mg/dL (0.0-1.1) AST 25 IU/L IU/L (17-59) ALT 22 IU/L IU/L (21-72) Alkaline Phosphatase 145 IU/L H IU/L (38-126) POC Troponin I Total Protein 10.7 g/dL H g/dL (6.3-8.2) Albumin 6.2 g/dL H g/dL (3.5-5.0) Lipase 57 IU/L IU/L (23-300) Beta-Hydroxybutyrate 0.92 mmol/L H mmol/L (0.02-0.27) Medications Given: Discontinued Medications Al Hydroxide/Mg Hydroxide (Maalox Susp) 30 ml PO ONCE ONE Stop: 05/28/18 22:24 Last Admin: 05/28/18 23:04 Dose: 30 ml Famotidine (Pepcid) 20 mg IVP EDNOW ONE Stop: 05/28/18 20:17 Last Admin: 05/28/18 20:22 Dose: 20 mg Fentanyl (Sublimaze) 50 mcg IVP EDNOW ONE Stop: 05/28/18 19:27 Last Admin: 05/28/18 19:31 Dose: 50 mcg Fentanyl (Sublimaze) 50 mcg IVP EDNOW ONE Stop: 05/28/18 20:17 Last Admin: 05/28/18 20:22 Dose: 50 mcg Hyoscyamine Sulfate (Levsin, Hyomax-Sl) 0.25 mg PO ONCE ONE Stop: 05/28/18 22:24 Last Admin: 05/28/18 23:04 Dose: 0.25 mg Sodium Chloride (Ns) 1,000 mls @ 0 mls/hr IV EDNOW ONE; Wide Open PRN Reason: Protocol Stop: 05/28/18 19:27 Last Admin: 05/28/18 19:32 Dose: 1,000 mls Sodium Chloride (Ns) 1,000 mls @ 0 mls/hr IV EDNOW ONE; Wide Open PRN Reason: Protocol Stop: 05/28/18 20:00 Last Admin: 05/28/18 20:14 Dose: 1,000 mls Lidocaine (Lidocaine 2% Viscous) 15 ml PO ONCE ONE Stop: 05/28/18 22:24 Last Admin: 05/28/18 23:03 Dose: 15 ml Ondansetron HCl (Zofran Odt) 4 mg PO EDNOW ONE Stop: 05/28/18 18:50 Last Admin: 05/28/18 18:53 Dose: 4 mg Ondansetron HCl (Zofran) 4 mg IVP EDNOW ONE Stop: 05/28/18 19:27 Last Admin: 05/28/18 19:31 Dose: 4 mg Point of Care Test Results: Chemistry 05/28/18 20:46 POC Troponin I 0.00 ng/mL ng/mL (0.00-0.08) Departure - Departure Disposition: Home, Routine, Self-Care Clinical Impression: Alcoholic gastritis Condition: Good Instructions: Gastritis (ED) Additional Instructions: DISCHARGE INSTRUCTIONS FROM YOUR DOCTOR Thank you for visiting our emergency department today. You were treated by a physician autopsy assistant today and your case was reviewed with our ED Attending physician. Please keep in mind that discharge from the emergency department does not mean that there is nothing wrong - it simply means that we have not identified an emergency condition that requires further evaluation or treatment in the hospital. You should always plan to follow up with primary care for re- evaluation of your condition in the next 2-3 days. If you have been referred to a specialist, please call as soon as possible (today or tomorrow) to schedule your follow up appointment at the appropriate time. DIAGNOSTIC EVALUATION EMERGENCY DEPARTMENT INCLUDED LABS, 2 L IV FLUID, AND CT SCAN. YOU SHOWS SIGNS OF SEVERE DEHYDRATION THAT WAS CORRECTED WITH IV FLUID. CT SCAN OF THE ABDOMEN SHOWS NO ACUTE ABNORMALITY OR SURGICAL EMERGENCY. PLEASE STOP DRINKING ALCOHOL. YOU LIKELY HAVE ALCOHOLIC GASTRITIS. NO EVIDENCE OF ACUTE PANCREATITIS. CONSIDER TAKING PRILOSEC DAILY 30 MIN BEFORE MEALS. AVOID ACID PRODUCING FOODS. FOLLOW UP WITH A PRIMARY CARE DOCTOR. IF YOU DO NOT HAVE 1 A REFERRAL WAS GIVEN. RETURN TO THE EMERGENCY DEPARTMENT IMMEDIATELY FOR SEVERE OR WORSENING ABDOMINAL PAIN, VOMITING BLOOD, HIGH FEVERS , CHEST PAIN OR SHORTNESS OF BREATH, OR ANY OTHER CONCERNS. People present with illnesses and injuries in different ways, and it is always possible that we have missed something. You may always return for re-evaluation if symptoms worsen or if they are not improving or if you develop new/different symptoms. Again, thank you for choosing our emergency department. We hope that you feel better. Referrals: NONE *PRIMARY CARE P,. [Primary Care Provider] - As per Instructions Beth Connor MD [Medical Doctor] - 1-2 days without fail Prescriptions: Ondansetron Odt [Zofran Odt] 4 mg PO Q4PRN PRN #7 tab PRN Reason: Nausea/Vomiting, Can'T Take Po
[2018-05-28 19:39] LABS: PLATELET COUNT 335 10^3/uL (150-400)
[2018-05-28] MEDS ORDERED: FAMOTIDINE 20 MG/2 ML SDV IVP ONE (20:16)
[2018-05-28] MEDS ORDERED: IOPAMIDOL (ISOVUE-300) 100 ML BTL ONE (21:30)
--- NOTE | 2018-05-28 21:51 | CPEKG ---
Test Reason : OPEN Blood Pressure : / mmHG Vent. Rate : 062 BPM Atrial Rate : 063 BPM P-R Int : 145 ms QRS Dur : 102 ms QT Int : 431 ms P-R-T Axes : 071 088 058 degrees QTc Int : 438 ms Sinus rhythm Confirmed by Frances Oviedo ([id number]) on 05/28/2018 9:50:36 PM Referred By: FRANCES OVIEDO Confirmed By:Frances Oviedo
[2018-05-28] MEDS ORDERED: LIDOCAINE 2% VISCOUS 15 ML UDCUP PO ONE (22:23)
[2018-05-28] MEDS ORDERED: MAG HYDROX/AL HYDROX/SIMETH 30 ML UDCUP PO ONE (22:23)
[2018-05-28] MEDS ORDERED: HYOSCYAMINE SULFATE 0.125 MG TAB PO ONE (22:23)
[2018-05-28 22:57] VITALS: BP 147/103
== END 2018-05-28 23:17 | disposition home or self-care (01) ==
DX: K29.20 Alcoholic gastritis without bleeding (principal); F10.20 Alcohol dependence, uncomplicated
CPT/HCPCS: 84484-ER; 96374; J2405; J3010; Q9967

== ENCOUNTER 2018-07-30 18:28 | Emergency (ER) | payer OTHER | END 2018-07-30 22:54 | disposition home or self-care (01) ==